=== PATIENT | male | born 1965 | race Caucasian/White ===

== ENCOUNTER 2018-09-22 21:39 | Emergency (ER) | payer BC ==
[2018-09-22] MEDS ORDERED: NORCO 5/325 MG PO ONE (22:07)
[2018-09-22] MEDS ORDERED: AMOXIL 500 MG PO ONE (22:08)
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
[2018-09-22] MEDS ORDERED: NORCO 5/325 MG ONE (22:22)
[2018-09-22] MEDS ORDERED: AMOXIL 500 MG ONE (22:23)
[2018-09-22 22:51] VITALS: BP 127/86; PULSE 107; O2SAT 98
== END 2018-09-22 22:51 | disposition home or self-care (01) ==
LOC: ED 21:39
DX: J01.90 Acute sinusitis, unspecified (principal); J02.9 Acute pharyngitis, unspecified; R11.2 Nausea with vomiting, unspecified
CPT/HCPCS: 99283; A9270-GY

== ENCOUNTER 2022-12-29 09:59 | Day surgery (SDC) | payer BC ==
--- NOTE | 2022-12-29 09:17 | HP ---
DATE OF SURGERY: 12/29/2022 HISTORY OF PRESENT ILLNESS: A 57-year-old last colonoscopy seven years ago had history of polyps. The patient is in need of follow up screening colonoscopy. He denies any bloody stools. He denies any change in bowel movements. No new pain. He has history of hemorrhoids in the past. Family history negative for colon cancer. PAST MEDICAL HISTORY: Sinus infections. Hypercholesterolemia. Hyperlipidemia. History of diverticular disease and psoriatic arthritis in the past. PAST SURGICAL HISTORY: Colonoscopy. Clavicle fracture. Nephrectomy. Right kidney removed. Twisted bowel in the past. MEDICATIONS: Pravastatin, vitamin E, montelukast, methocarbamol, famotidine, desvenlafaxine succinate, vitamin B complex, vitamin C, azelastine, fluconazole, apremilast tablets. ALLERGIES: NUBAIN. FAMILY HISTORY: Alzheimer's. Congestive heart failure. SOCIAL HISTORY: Chews tobacco. No smoking. Occasional alcohol use. REVIEW OF SYSTEMS: Fourteen systems reviewed. No chest pain or palpitations. Other systems negative or noncontributory as above and per preadmission questionnaire. PHYSICAL EXAMINATION: GENERAL: No acute distress. HEENT: Sclerae nonicteric. EOMI. NECK: No JVD. CHEST: Equal excursion, nonlabored breathing. CVS: Regular rate and rhythm. ABDOMEN: Soft. No peritoneal signs. EXTREMITIES: No significant edema. NEURO: Alert, oriented, moving extremities symmetrically. RECTAL: Deferred timed to endoscopy exam. PSYCH: Appropriate mood and affect. SKIN: Dry. IMPRESSION: History of polyps in need of follow up screening colonoscopy. I feel he is a candidate. He was shown the risk sheet explained the procedure in detail including but not limited to bleeding or infection, risk of bowel injury or perforation possibly requiring further procedure, risk of missed or nondiagnosis or incomplete exam possibly requiring barium enema or barium swallow, possible need for other procedures or referrals, risk of sedation and anesthesia, risk of bowel prep but not limited to, consent obtained. Will proceed with outpatient follow up screening colonoscopy under MAC anesthesia.
[2022-12-29] MEDS ORDERED: Lactated Ringers 1,000 ML IV ONE (10:18)
[2022-12-29] MEDS ORDERED: Versed 2 MG/2 ML Injection ONE (13:01)
[2022-12-29] MEDS ORDERED: Xylocaine-Mpf 2% 5 Ml Vial ONE (13:01)
[2022-12-29] MEDS ORDERED: DIPRIVAN 200 MG/20 ML IV ONE ×2 (13:01→13:17)
[2022-12-29 13:09] VITALS: BP 118/89; PULSE 76; O2SAT 99
--- NOTE | 2022-12-29 14:47 | OP ---
SURGERY DATE/TIME: 12/29/2022 1203 PREOPERATIVE DIAGNOSIS: History of polyps in need of follow up screening colonoscopy. POSTOPERATIVE DIAGNOSES: 1) ASA Class II. 2) Small polyps sigmoid colon x2. 3) Fair bowel prep. 4) Diverticulosis left colon. 5) Fair bowel prep. 6) Withdrawal time approximately eleven minutes. PROCEDURES: Colonoscopy. OPERATIONS INTELLIGENCE SUPERINTENDENT: Doris Wilks, Medical Student III. SURGEON: Dr. Sriram Hurst. ANESTHESIA: MAC. ESTIMATED BLOOD LOSS: Minimal. INDICATIONS: As noted above. Risks and benefits explained in detail but not limited to and consent obtained. DESCRIPTION OF PROCEDURE AND FINDINGS: The patient is taken to the endoscopy room. MAC anesthesia induced. After official time out and no disagreement with planned procedure, digital rectal exam did not reveal any rectal masses. Video colonoscope inserted and passed up through the slightly tortuous sigmoid, descending, transverse and ascending colon. With the external pressure the scope was able to be passed around to the cecum. Appendiceal orifice and valve well visualized and photo documented. Prep overall is fair with a little liquidy semisolid stool throughout the colon just slightly limiting the exam for small lesions this is suctioned as clear as possible. The scope is then carefully withdrawn over the next eleven minutes. Diverticulosis and small diverticula in the left colon. Otherwise, the scope pulled back to the sigmoid colon. There was one area of polyps more of an inflammatory polyp removed with hot snare polypectomy with brief bursts of cautery. Good hemostasis noted this is about 2.5 to 4 mm in size. There is a 3 mm polyp in the more distal sigmoid colon removed about 3 mm in size more adenomatous in nature removed with hot snare polypectomy. Good hemostasis noted. Otherwise, no signs of any large polyps, masses or obstructing lesions. The scope is withdrawn. I will see if there is family to discuss the findings with out in the waiting room.
== END 2022-12-29 13:10 | disposition home or self-care (01) ==
LOC: SDC 09:59
PROVIDERS: ATTEND Surgery
DX: Z09 Encounter for follow-up examination after completed treatment for conditions other than malignant neoplasm (principal); Z86.010 Personal history of colon polyps; D12.5 Benign neoplasm of sigmoid colon; K57.30 Diverticulosis of large intestine without perforation or abscess without bleeding
CPT/HCPCS: 88305; J2250; J2704

== ENCOUNTER 2024-12-07 17:36 | Emergency (ER) | payer BC ==
[2024-12-07 17:42] VITALS: RESP 18; TEMP 98.7
[2024-12-07] MEDS ORDERED: solu-MEDROL ONE (17:53)
[2024-12-07] MEDS ORDERED: Sterile H2O 10 ml IJ ONE (17:53)
[2024-12-07] MEDS ORDERED: BENADRYL 50 MG/ML ONE (17:53)
[2024-12-07] MEDS: BENADRYL 50 MG/ML IM ONE (17:59)
[2024-12-07] MEDS: solu-MEDROL 125 MG, Sterile H2O 10 ml 2 ML IM ONE (18:00)
[2024-12-07 18:03] VITALS: O2SAT 96
[2024-12-07] MEDS ORDERED: BACIGUENT PACKET ONE (18:18)
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
[2024-12-07] MEDS: OMNICEF 300 MG PO STA (18:32)
[2024-12-07] MEDS: Pepcid 20 MG PO ONE (18:33)
[2024-12-07] MEDS ORDERED: Pepcid 20 MG ONE (18:33)
[2024-12-07] MEDS: BACIGUENT PACKET TP ONE (18:33)
[2024-12-07 18:40] VITALS: BP 130/79; PULSE 104
== END 2024-12-07 18:44 | disposition home or self-care (01) ==
LOC: ED 17:36
DX: T78.40XA Allergy, unspecified, initial encounter (principal); S50.312A Abrasion of left elbow, initial encounter; L03.114 Cellulitis of left upper limb; R21 Rash and other nonspecific skin eruption; I10 Essential (primary) hypertension; Z79.52 Long term (current) use of systemic steroids; Z79.899 Other long term (current) drug therapy
CPT/HCPCS: 96372; 99282; 99283; 99284; J1200; J2919; A9270-GY